=== PATIENT | female | born 1955 | race Caucasian/White ===

== ENCOUNTER → 2016-05-26 | Outpatient (CLI) | payer OTHER ==
--- NOTE | 2016-05-26 12:53 | DX ---
Lumbar Spine, five views History: Low back pain in a 61-year-old female. No associated radicular symptomatology is reported. Findings: Lumbar alignment is anatomic. There is partial lumbarization of S1. Vertebral body heights are well maintained. No significant disk space loss is identified. Facet hypertrophic changes extend from L3-L4 to the L5-S1 level. IMPRESSION: Mild multilevel degenerative changes are noted. If symptoms persist, MRI could be considered for further evaluation.
== END ==
LOC: BMCIMAGING 11:39
PROVIDERS: ATTEND Internal Medicine
DX: M54.5 Low back pain (principal)